=== PATIENT | female | born 1950 | race Caucasian/White ===

== ENCOUNTER → 2016-07-26 | Outpatient (CLI) | payer MEDICARE, BC ==
[~2016-07-26] MED LIST: ASPIRIN LO-DOSE81 MG PO; BUMEX1 MG PO; COQ10-VIT E 201 EACH PO; COUMADIN 4MG **4 MG PO; COZAAR50 MG PO; CRESTOR40 MG PO; DELTASONE10 MG PO; FISH OIL 1,0001 EACH PO; GLUCAGON EMERGEN1 MG SUB-Q; IMDUR60 MG PO; LANTUS SOL100 UNIT/1 SUB-Q; LEVOTHROID (S125 MCG PO; LIPITOR80 MG PO; MULTI-VITAMIN1 EAC1 PO; NEURONTIN300 MG PO; NORVASC5 MG PO; NOVOLOG FL100 UNIT/1 SUB-Q; PLAVIX75 MG PO; TOPROL XL25 MG PO; TYLENOL EXTRA500 MG PO
== END | disposition disaster alternative care site (69) ==
LOC: GRAD 08:15
DX: R22.41 Localized swelling, mass and lump, right lower limb (principal)
CPT/HCPCS: A9577

== ENCOUNTER 2016-08-23 19:59 | Inpatient (IN) | payer MEDICARE, BC ==
[~2016-08-23] VITALS: Ht 157.5 cm; Wt 101.3 kg
--- NOTE | ~2016-08-23 | CATH ---
Cardiac Diagnostic + PCI Report Demographics Patient Name TITI Zelaya Gender Female Date of 1950 Age 65 year(s) Patient Number [id number] Date of Study 08/26/2016 Visit Number [id number] Room Number G6302 [place] [id number] Ht 157.48 cm Wt 100.25 kg Referring Efstratiou Primary Physician Physician Toño Mcghee MD Performing Efstratiou Secondary Physician Physician Toño Mcghee MD Diagnostic Efstratiou Assisting Physician Physician Toño Mcghee MD Interventional Efstratiou Physician Slicer Machine Operator Physician Toño Mcghee MD Findings and Conclusions Diagnostic Findings and Conclusion Patent grafts to LAD and RPDA. Severe diffuse disease of [place] vessels. Culprit appears to be proximal circumflex(80%) and OM (90% and 95%). Diagnostic Recommendations PCI to Circumflex and OM Interventional Findings and Conclusion OM was wired successfully but even the 1.2 mm balloon would not cross the 95% stenosis. Successful AMANDA to Proximal Circumflex extending into the proximal OM. Interventional Recommendations Aspirin, Plavix, and Coumadin for 1 month. Plavix and Coumadin for 11 months. Procedure Description The patient was brought to the diagnostic cardiac catheterization-EP laboratory in the fasting, non-sedated state. Informed consent was obtained in the written and verbal form after the risks and benefits were explained. The patient had no further questions and agreed to proceed. The planned puncture-incision site(s) were shaved and prepped with ChloraPrep and draped in the usual sterile manner. Conscious sedation, supplemental oxygen, and pain control medications were delivered by a registered nurse under physician guidance. Surface ECG rhythm, blood pressure measurement, and pulse oximetry were monitored throughout the procedure. Arterial access. The access site was infiltrated with lidocaine. The vessel was entered with the Seldinger technique. A sheath was advanced into the vessel and used for catheter placement. Selective left coronary angiography. A catheter was advanced into the left coronary vessel ostium under Fluoroscopic guidance. Contrast was injected by hand. Images were obtained in multiple projections. Selective right coronary angiography. A catheter was advanced into the right coronary vessel ostium under fluoroscopic guidance. Contrast was injected by hand. Images were obtained in multiple projections. Angioplasty and Stent Placement: A guiding catheter was used to intubate the vessel. A 0.14 wire was then used to cross the lesion. A balloon catheter was placed across the lesion and inflated. The balloon catheter was then removed. A Drug Eluting Stent was placed and inflated. Post placement angiograms were performed. Arterial artery hemostasis was achieved. The patient was transferred to a regular nursing floor via cart accompanied by a nurse. The patient left the laboratory in stable condition. Diagnostic Cath Status: Urgent Interventional Cath Status: Urgent Procedure Procedure Type Diagnostic procedure:Angiography:, Coronary Angios PCI procedure:Drug Eluting Coronary Stent:, CFX, PTCA:, CFX, OM Indications: Chest pain. The procedure was explained in detail to the patient. Risks, complications and alternative treatments were reviewed. Written consent was obtained. Medications Reviewed with Patient prior to Procedure. Angiographic Findings Dominance: Right Cardiac Arteries and Lesion Findings LMCA: Patent LAD: Circumflex small vessel Lesion on Mid LAD: 95% stenosis . Lesion on 1st Dia% stenosis . LCx: Lesion on Prox CX: Proximal subsection.80% stenosis 24 mm length reduced to 0%. Pre procedure MIGUEL III flow was noted. Post Procedure MIGUEL III flow was present. The guidewire cross was successful.The lesion was diagnosed as a moderate risk lesion.Culprit lesion. Devices used - Emerge Balloon 2.25 x 12. 1 inflation(s) to a max pressure of: 16 zan. - NC Emerge Balloon 3.0 x 12. 2 inflation(s) to a max pressure of: 25 zan. - NC Trek Balloon 2.5 x 12. Diameter: 2.5 mm. Length: 12 mm. 3 inflation(s) to a max pressure of: 30 zan. - Prowater Wire .014 x 180. Number of passes: 2. - Emerge Balloon 2.5 x 12. 2 inflation(s) to a max pressure of: 16 zan. - Promus Premier 2.5 x 12 Stent. 1 inflation(s) to a max pressure of: 16 zan. - Promus Premier 2.75 x 12 Stent. 1 inflation(s) to a max pressure of: 27 zan. Lesion on 1st Ob Rosibel: Proximal subsection.85% stenosis . Pre procedure MIGUEL III flow was noted. Post Procedure MIGUEL III flow was present. The guidewire cross was successful.The lesion was diagnosed as a moderate risk lesion. Devices used - Whisper Wire .014 x 190. Number of passes: 1. - Emerge Balloon 1.5 x 12. 2 inflation(s) to a max pressure of: 14 zan. - DOC Wire. Number of passes: 1. - Emerge OTW Push Balloon 1.2 x 8. 2 inflation(s) to a max pressure of: 18 zan. Lesion on 1st Ob Rosibel: Distal subsection.95% stenosis . RCA: Lesion on Mid RCA: 75% stenosis . Lesion on Dist RCA: 100% stenosis . Lesion on 1st RPL: 95% stenosis . Cardiac Grafts - There is a graft that originates at the WESTON and attaches to the Mid LAD (Patent). - There is a Vein graft that originates at the Aorta Right and attaches to the R PDA (Patent). - There is a Vein graft that originates at the Aorta Right and attaches to the 1st Ob Rosibel (Chronically occluded). Coronary Tree Procedure Data Procedure Date Date: 08/26/2016Start: 09:12 AMEnd: 11:08 AM Entry Locations - Retrograde Percutaneous access was performed through the Right Femoral artery (Primary location). A 6 Fr sheath was inserted. Hemostasis was successfully obtained using Angio-Seal STS PLUS ([place]). Closure Comments: Deployed by Dr. Lanza.. Procedure Medications Order and Administration + + + + + !Time !Medication !Dosage !Route ! + + + + + !08/26/2016 09:09 AM !Versed !1 mg !I.V. ! + + + + + !08/26/2016 09:14 AM !0.9% NaCl !200 ml !I.V. bolus ! + + + + + !08/26/2016 09:16 AM !Fentanyl !50 mcg !I.V. ! + + + + + !08/26/2016 09:20 AM !0.9% NaCl !200 !I.V. bolus ! + + + + + !08/26/2016 09:20 AM !Heparin (ACC_3) !8000 units !I.V. bolus ! + + + + + !08/26/2016 09:21 AM !Oxygen !2 l/min !NC ! + + + + + !08/26/2016 09:33 AM !Heparin (ACC_3) !3000 units !I.V. bolus ! + + + + + 08/26/2016 09:54 AM !Fentanyl !50 mcg !I.V. ! + + + + + 08/26/2016 09:54 AM !Fentanyl !50 mcg !I.V. ! + + + + 08/26/2016 10:03 AM !Integrilin (ACC_7) !20 mg !I.C. ! + + + + + 08/26/2016 10:51 AM !Plavix (ACC_8) !600 mg !P.O. ! + + + + + Devices Used - A6 Fr. BS JL 4 Diag. Catheterwas used for:Left coronary angiography. - A6 Fr. BS JR 4 Diag. Catheterwas used for:Right coronary angiography. - A6 Fr. BS JR 4 Diag. Catheterwas used for:SVG. - A6 Fr. BS JR 4 Diag. Catheterwas used for:WESTON. - A6 Fr. XB 3.5 Guide Catheterwas used for:OM Intervention. - A6 Fr. Guidlinerwas used for:Circumflex Intervention. Contrast Material - Isovue 406220 ml Fluoroscopy Time: Diagnostic: 34:42 minutes. Total: 34:42 minutes. Fluoroscopy Dose: Diagnostic: 3047 mGy. Total: 3047 mGy. Estimated Blood Loss: 50 ml. Additional [facility] PCI Information PCI Indication:PCI for high risk Non-STEMI or unstable angina. Medical History Allergies - Antibiotics:(augmentin, amox m ceph). - Other:(epi). - Cephalosporines. Risk Factors The patient risk factors include: prior CABG on 04/13/2008;obesity, cerebrovascular disease, treated hypercholesterolemia, treated hypertension, family history of premature CAD, insulin-treated diabetes mellitus, last creatinine: 0.8 mg/dl, creatinine clearance: 110.95 ml/min, dyslipidemia, renal failure and prior heart failure . Admission Data Admission Date: 08/23/2016 Admission Time: 10:40 PM Insurance Payors: Medicare. Admission Medications + +------+------+ + + + + !Medication !Dosage!Times !Last !Last !Administered !Comments ! ! ! !Per !Delivery !Delivery ! ! ! ! ! !Day !Date !Time ! ! ! + +------+------+ + + + + !VADIM ! ! ! ! !Yes ! ! !Inhibitor ! ! ! ! ! ! ! !(any) ! ! ! ! ! ! ! + +------+------+ + + + + !Aspirin ! ! ! ! !Yes ! ! !(any) ! ! ! ! ! ! ! + +------+------+ + + + + !Statin (any)! ! ! ! !Yes ! ! + +------+------+ + + + + !ARB (any) ! ! ! ! !Yes ! ! + +------+------+ + + + + !Beta Johnie! ! ! ! !Yes ! ! !(any) ! ! ! ! ! ! ! + +------+------+ + + + + !Warfarin ! ! ! ! ! ! ! + +------+------+ + + + + Clinical Evaluation Leading to Procedure - The patient's CAD presentation was assessed as: Unstable angina. - The patient's anginal syndrome during the past two weeks was assessed as: Class IV according to the [place] Cardiovascular Society Classification System (CCS). Anti-anginal medications were prescribed during the past two weeks. The medications are: Beta Blockers, Ca channel Blockers and Long Acting Nitrates. Snapshots Hemodynamics Condition: Rest O2 Consumption: Estimated: 176.22Heart Rate: 57 bpm Pressures (mmHg) +-----+ + !Site !Pressure ! +-----+ + !AO !158/58 (94) ! +-----+ + !AO !147/50 (85) ! +-----+ + Shunts Oxygen Values O2 Capacity 171.36 O2 Consumption 176.22 Signatures dtt: Paola Lanza dtd: 08/26/16 0912 Physician Self Edit
--- NOTE | ~2016-08-23 | DS ---
PATIENT'S NAME: TAE WALLS [facility] AGE: 65 Y [address] ROOM: [address] [address] LOCATION: GPCU ADMIT DATE: 08/23/2016 Discharge Summary DISCHARGE DATE: 08/27/2016 FAMILY PHYSICIAN: Terry Demarco MD ATTENDING PHYSICIAN: Terry Demarco DISCHARGE DIAGNOSES: 1. Acute coronary syndrome with coronary artery disease with angina. 2. Drug-eluting stent to the circ and PTCA to the circ and obtuse marginal. 3. Chronic diastolic congestive heart failure. 4. Adult-onset diabetes mellitus, insulin dependent. 5. Hypertension. 6. Hyperlipidemia. 7. Polymyalgia rheumatica. 8. Diabetic neuropathy. DISCHARGE INSTRUCTION: Normal postcatheterization teaching restrictions were given, and they will get the patient going with outpatient cardiac rehab. FOLLOWUP: Follow up is with Dr. Demarco at his normal scheduled appointment and Dr. Lanza in 2 weeks. DISCHARGE INSTRUCTIONS: She is to follow a cardiac prudent diabetic diet. She has a 10-pound lifting restriction for 1 week. DISCHARGE MEDICATIONS: Include: 1. Amlodipine 5 mg daily. 2. Aspirin 81 mg daily. 3. Bumex 1 mg 3 days of the week, Saturday, , and Saturdays. 4. [place]-3 fatty acids or fish oil 1 capsule 1000 mg daily. 5. Gabapentin 300 mg b.i.d. 6. Glucagon p.r.n. hypoglycemia. 7. Isosorbide mononitrate 60 mg daily. 8. Insulin 52 units subcutaneously at h.s. 9. Levothyroxine 125 mcg daily. 10. Losartan 100 mg daily. 11. NovoLog prior to meals per her normal scale which is 5 units per carb exchange. 12. Prednisone 10 mg twice daily with meals. 13. Metoprolol tartrate 37.5 mg twice daily. 14. Warfarin 6 mg 2 days a week, on Tuesdays and Saturdays, and 8 mg the rest of the week. 15. Tylenol 500 mg every 6 hours. 16. Folic acid 1 tab daily. 17. Co Q10 and vitamin E combination 1 tab daily. PATIENT'S NAME: TAE WALLS [facility] AGE: 65 Y [address] ROOM: G6302 [place], [place] [address] LOCATION: GPCU ADMIT DATE: 08/23/2016 Discharge Summary DISCHARGE DATE: 08/27/2016 FAMILY PHYSICIAN: Terry Demarco MD ATTENDING PHYSICIAN: Terry Demarco 18. Plavix 75 mg daily. 19. Rosuvastatin 40 mg daily. HISTORY OF PRESENT ILLNESS: The patient was admitted by my partner, Dr. Rosaline Mooney with acute coronary syndrome orders. Orders were filled out and [facility] Cardiology was consulted. The patient had chest pain, which resolved upon admission to the emergency room. With her history of previous bypass surgery and signs of ST-elevation in II, III, and AVF, it was thought best to go ahead and admit her. She was recently diagnosed with polymyalgia rheumatica. The patient's hospital course was fairly uncomplicated. She was admitted for acute coronary syndrome orders. We did Accu-Cheks a.c. and h.s., and we switched her over to her home NovoLog sliding scale as she does better. Her last A1c had just been a month prior and was 6.5, so she was showing good control. We did resume her prednisone at 10 mg b.i.d. due to her recent diagnosis of polymyalgia rheumatica. The patient overall did well. Cardiology was consulted. They held her Coumadin. We did give her some Flexeril for leg cramps. Her situation overall stabilized. Once her protime had reversed adequately, she was taken to the microbiological laboratory technician. Her blood pressures were running high, so we increased her losartan to 100 mg p.o. daily. Her cardiac cath was successful. She had a stent of the circ and angioplasty of her obtuse marginal. The patient did well post catheterization, and on August 27, 2016, was ready for dismissal. We went ahead and resumed her warfarin. She has an appointment for me in a few days, and we will just follow her up at that time and recheck and see how she is doing. CONDITION ON DISCHARGE: Good. MD MARIBEL CONNELL/briseyda /[id number] d: 09/19/16 2115 t: 09/26/16 1753, DISCHARGE SUMMARY
--- NOTE | ~2016-08-23 | ECHO ---
Transthoracic Echocardiography Report (TTE) Demographics Patient Name TAE WALLS Date of Study 08/24/2016 Patient Number [id number] Visit Number [id number] Date of 1950 Room Number G6302 Accession Number [id number] Gender Female Age 65 year(s) Referring Jesica Hartman MD Consumer Electronics Merchandiser Faith Pickering [facility] Physician Physician Interpreting Myla Lundberg Evaluator Physician Taz CARRILLO Supervising Ordering Physician Jesica Hartman MD, MD/P Nurse Stress Anhydrous Ammonia Production Supervisor Conclusions Summary Technically difficult exam. The estimated left ventricular ejection fraction is 50%. Diastolic function indeterminate due to patient's arrhythmia. The left ventricle is mildly dilated . Mildly reduced right ventricular function. Borderline prolapse of the anterior mitral valve leaflet with trivial mitral regurgitation Mild tricuspid regurgitation by color Doppler. Procedure Type of Study TTE procedure:2D Echocardiogram, Echo with Contrast. Procedure Date Date: 08/24/2016 Start: 09:04 AM Study Location: Inpatient Portable Technical Quality: Limited visualization due to body habitus. Appropriate Use Criteria: 9 Patient Status: Routine HR: 45 bpm BP: 169/72 mmHg Allergies - Antibiotics:(augmentin, amox m ceph). - Other:(epi). M-Mode/2D Measurements LV Diastolic Dimension: 4.75 cm LV Systolic Dimension: 3.49 cm LV Septum Diastolic: 1.06 cm LV PW Diastolic: 1.07 cm AO Root Dimension: 2.4 cm Cardiac Output: 3.19 l/min AV Cusp Separation: 1.8 cm RV Diastolic Dimension: 3.11 cm LA volume: 22 ml LVOT: 2 cm LVOT VTI: 22.6 cm TAPSE: 1.26 cm LV Stroke volume: 70.96 ml Doppler Measurements AV Peak Velocity: 1.37 m/s MV Peak E-Wave: 0.82 m/s AV Peak Gradient: 7.51 mmHg MV Peak A-Wave: 0.74 m/s AV Mean Gradient: 4 mmHg MV E/A Ratio: 1.11 LVOT Peak Velocity: 1.03 m/s MV P1/2t: 59 msec TR Gradient:12.11 mmHg PV Peak Velocity: 0.93 m/s Estimated RAP:10 mmHg PV Peak Gradient: 3.49 mmHg Estimated RVSP: 22 mmHg Estimated PASP: 22.11 mmHg E' Septal Velocity: 0.09 m/s A' Septal Velocity: 0.11 m/s Findings Left Ventricle Diastolic function indeterminate due to patient's arrhythmia. The left ventricle is mildly dilated . Right Ventricle Mildly reduced right ventricular function. Left Atrium Normal left atrial size. Right Atrium Normal right atrial size. Mitral Valve Borderline prolapse of the anterior mitral valve leaflet with trivial mitral regurgitation Aortic Valve Normal aortic valve structure and function. Tricuspid Valve Mild tricuspid regurgitation by color Doppler. Pulmonic Valve Normal pulmonic valve structure and function. Pericardial Effusion No evidence of pericardial effusion. Pleural Effusion No evidence of pleural effusion. Signature dtt: Paola Lanza dtd: 08/24/16 0904 Physician Self Edit
--- NOTE | ~2016-08-23 | CON ---
PATIENT'S NAME: TAE WALLS [facility] AGE: 65 Y [address] ROOM: [place] [address] LOCATION: GPCU ADMIT DATE: 08/23/2016 Consultation DISCHARGE DATE: FAMILY PHYSICIAN: Terry Demarco MD ATTENDING PHYSICIAN: Terry Demarco DATE OF CONSULTATION: 08/24/2016 REFERRING PHYSICIAN: Paola Lanza MD REASON FOR CARDIOLOGY CONSULT: Chest pain. HISTORY OF PRESENT ILLNESS: This is a 65-year-old female, familiar to [facility]. She was last seen by Dr. Lanza on 07/12/2016. She has a previous history of coronary artery bypass grafting as well as paroxysmal atrial fibrillation with long-term anticoagulation with Coumadin. She called her primary care provider, who was on-call the night prior to admission with complaints of chest pressure and shortness of breath that lasted about 10 minutes. The symptoms resolved on their own, but the primary care provider wanted her to be evaluated in the emergency department. Once again, this consult was requested due to the complaints of chest pain and pressure, which she describes as epigastric in nature and radiating up into her jaw. She denies any nausea or vomiting as well as palpitations or presyncope. PAST MEDICAL HISTORY: 1. Coronary artery disease. 2. Paroxysmal atrial fibrillation. 3. Long-term anticoagulation with Coumadin. 4. Chronic diastolic congestive heart failure. 5. Diabetes mellitus type 2. 6. Hypothyroidism. 7. Ulcerative colitis. 8. Arthritis. PAST SURGICAL HISTORY: Coronary artery bypass grafting in 2007. FAMILY HISTORY: The patient's mother due to a myocardial infarction. She also has a sister with a history of breast cancer. SOCIAL HISTORY: The patient denies ever using tobacco. She does admit to social use of alcohol, but denies illicit drug use. PATIENT'S NAME: TAE WALLS [facility] AGE: 65 Y [address] ROOM: [place] [address] LOCATION: GPCU ADMIT DATE: 08/23/2016 Consultation DISCHARGE DATE: FAMILY PHYSICIAN: Terry Demarco MD ATTENDING PHYSICIAN: Terry Demarco CURRENT MEDICATIONS: 1. Multivitamin 1 tablet p.o. daily. 2. Cozaar 50 mg p.o. daily. 3. Deltasone 10 mg p.o. twice daily. 4. Imdur 60 mg p.o. daily in the evening. 5. Synthroid 125 mcg p.o. daily. 6. Lipitor 80 mg p.o. daily in the evening. 7. Neurontin 300 mg p.o. twice daily. 8. Toprol-XL 25 mg p.o. twice daily. 9. Levemir 52 units subcu daily in the evening. 10. NovoLog 1 unit subcu for every 10 g of carbs with meals and in the evening. 11. NovoLog 5 units per every 15 g of carbs with meals. MEDICATION ALLERGIES: Cephalosporins causing rash. REVIEW OF SYSTEMS: Pertinent positive review of systems was listed in HPI. All other review of systems was evaluated and negative. DIAGNOSTICS: CMS evaluation shows sodium of 140, potassium 3.8, BUN of 27, creatinine 1.0, glucose of 131, and a magnesium of 2.1. Lipid evaluation shows total cholesterol of 188, triglycerides of 97, HDL of 96, and LDL of 73. Cardiac enzyme trend shows CPK of 145, then 135, then 126. CK-MB of 2.5, then 2.6, and 2.5. Troponin I of less than 0.04 x3 values. Echocardiogram shows an estimated left ventricular ejection fraction of 50%. She has a mildly dilated left ventricle and a mildly reduced right ventricular function. There is also borderline prolapse of the anterior mitral valve leaflet and trivial mitral regurgitation as well as mild tricuspid regurgitation. PHYSICAL EXAMINATION: VITAL SIGNS: Temperature 97.9, pulse 61, respirations 16, blood pressure 132/60, O2 saturation 95% on room air. The patient weighs 100.4 kg. SKIN: [place], warm, and dry. EYES: Sclerae are clear. No xanthelasmas. ENT: Oral mucosa is pink and moist. No carotid bruits noted. She does have mild jugular venous distention. CHEST: Respirations are even and unlabored. LUNGS: Clear to auscultation to bilateral upper lobes. They are diminished to bilateral lower lobes. PATIENT'S NAME: TAE WALLS [facility] AGE: 65 Y [address] ROOM: [address] [address] [facility] ADMIT DATE: 08/23/2016 Consultation DISCHARGE DATE: FAMILY PHYSICIAN: Terry Demarco MD ATTENDING PHYSICIAN: Terry Demarco HEART: Regular rate and rhythm. Normal S1, S2. No murmurs, rubs, or gallops. ABDOMEN: Soft, nontender. MUSCULOSKELETAL: Gait is normal. EXTREMITIES: Peripheral pulses are palpable. No clubbing or cyanosis noted. She does have 2 to 3+ lower extremity edema present. PSYCH: Alert and oriented. Mood and affect are appropriate. IMPRESSION AND PLAN: Per Dr. Lanza: 1. Chest pressure, resembling classic angina with radiation to her jaw. 2. History of polymyalgia rheumatica. 3. Hypertension. 4. Hyperlipidemia. 5. Chronic diastolic congestive heart failure. Cardiac enzymes and EKG are currently stable for any acute changes of ischemia, but with her classic signs of angina, we will plan to proceed with a selective coronary angiography and possible percutaneous intervention. Her INR is elevated due to her chronic Coumadin use. So, we will hold that and trend her INR down until it is safe to proceed with heart catheterization. We will continue to monitor, evaluate, and treat as appropriate. Thank you for this consult. Thank you for allowing [facility] to interact in the care of this patient. EVARISTO HERNANDEZ APRN FOR MD EL HILLIARD/briseyda /[id number] d: 08/25/1624 t: 08/29/16 1011, CONSULTATION REPORT
--- NOTE | ~2016-08-23 | ER ---
PATIENT'S NAME: TAE WALLS [facility] AGE: 65 Y [address] ROOM: [place] [address] LOCATION: GPCU ADMIT DATE: 08/23/2016 ER/Outpatient Report DISCHARGE DATE: FAMILY PHYSICIAN: Terry Demarco MD ATTENDING PHYSICIAN: Terry Demarco Time of Arrival: 1959 hours. Time of Evaluation: On arrival. CHIEF COMPLAINT: This is a 65-year-old female, previously reasonably healthy. She is in with complaint of substernal chest pain. HISTORY OF PRESENT ILLNESS: She reports she had about a 20-minute episode of midline substernal chest pain, described as a pressure or tightness. It radiated in to her neck and jaw, associated with mild shortness of breath. No nausea or vomiting, and no diaphoresis. PAST MEDICAL HISTORY: Significant for atrial fibrillation, gout, coronary artery disease with previous three-vessel bypass. REVIEW OF SYSTEMS: She states she has felt very fatigued for the past 4 or 5 days. All other systems are negative. SOCIAL HISTORY: She is a nonsmoker. PHYSICAL EXAMINATION: GENERAL: Alert, cooperative female, in no acute distress. VITAL SIGNS: Stable. SKIN: Warm and dry. Color is pale. She is asymptomatic at the time of my evaluation. HEAD, EARS, EYES, NOSE, AND THROAT: Normal. NECK: Supple. HEART: Regular rate and rhythm without murmur. LUNGS: Clear. Breath sounds are equal. ABDOMEN: Soft and nontender. EXTREMITIES: Normal. NEUROLOGIC: Normal. LABORATORY DATA AND X-RAYS: EKG revealed a [address] elevation in leads II, III, and aVF with ST PATIENT'S NAME: TAE WALLS [facility] AGE: 65 Y [address] ROOM: [place] [address] LOCATION: GPCU ADMIT DATE: 08/23/2016 ER/Outpatient Report DISCHARGE DATE: FAMILY PHYSICIAN: Terry Demarco MD ATTENDING PHYSICIAN: Terry Demarco depression in aVL. This is new as compared to the EKG performed in December of last year. EMERGENCY DEPARTMENT COURSE: The patient remained pain-free in the emergency department. I discussed the case with tax compliance manager. EKGs were e-mailed to the tax compliance manager. She reviewed those. Since the patient was not having pain while in the emergency department and her initial cardiac enzymes are negative, she was admitted on IV heparin. ASSESSMENT: 1. Chest pain/unstable angina. 2. Abnormal EKG. 3. History of atrial fibrillation. PLAN: Admit with ACS protocol with IV heparin. MD BRITTNI MAJOR/modl /[id number] d: 08/24/16 0424 t: 08/26/16 0600, OUTPATIENT REPORT
[2016-08-23 21:21] LABS: BASOPHIL % 0.2 %; EOSINOPHIL # 0.1 K/uL (0.0-0.5); EOSINOPHIL % 0.6 %; HEMATOCRIT 41.4 % (33.0-46.0); HEMOGLOBIN 13.5 g/dL (10.0-15.0); IMMATURE GRANULOCYTE % 0.3 %; LYMPHOCYTE # 1.7 K/uL (0.8-4.0); LYMPHOCYTE % 15.4 %; MCH 28.5 pg (27.0-34.0); MCHC 32.6 gm/dL (32.0-36.5); MCV 87.5 fl (83.0-98.0); MONOCYTE # 0.7 K/uL (0.0-1.0); MONOCYTE % 6.8 %; MPV 10.9 fl (9.4-12.4); NEUTROPHIL # (ANC) 8.2 K/uL (1.8-7.8); NEUTROPHIL % 76.7 %; NRBC % 0 /100WBC (0-0.00); PLATELET COUNT 252 K/uL (150-450); RBC 4.73 M/uL (3.50-5.50); RDW-CV 15.9 % (11.9-14.6); WBC 10.7 K/uL (4.0-11.0)
[2016-08-23 21:32] LABS: ALBUMIN 3.5 gm/dL (3.5-5.0); ALK PHOS 172 IU/L (33-138); ALT 44 IU/L (12-78); BLOOD UREA NITROGEN 27 mg/dL (6-24); CALCIUM 8.9 mg/dL (8.5-10.5); CHLORIDE 103 mMol/L (96-110); CO2 27 mMol/L (22-32); CPK 145 IU/L (21-215); ESTIMATED GFR (MDRD EQUATION) 56; SODIUM 140 mMol/L (135-145); TOTAL BILIRUBIN 0.4 mg/dL (0.0-1.5); TOTAL PROTEIN 7.6 g/dL (6.0-8.4)
[2016-08-23 21:33] LABS: ANION GAP 13.8 (10.0-19.0); AST 28 IU/L (10-40); MAGNESIUM 2.1 mg/dL (1.8-2.6); POTASSIUM 3.8 mMol/L (3.7-5.1)
[2016-08-23 22:09] LABS: INR - (THERAPEUTIC) 3.18 (0.89-1.05); PROTIME 33.8 SECONDS (9.1-10.7); PTT 34 SECONDS (23-30)
[2016-08-23 23:27] LABS: CPK 135 IU/L (21-215)
[2016-08-24] MEDS ORDERED: NORVASC5 MG PO
[2016-08-24] MEDS ORDERED: ASPIRIN LO-DOSE81 MG PO (00:02)
[2016-08-24] MEDS ORDERED: BUMEX1 MG PO (00:02)
[2016-08-24] MEDS ORDERED: CRESTOR40 MG PO (00:03)
[2016-08-24] MEDS ORDERED: NEURONTIN300 MG PO (00:04)
[2016-08-24] MEDS ORDERED: FISH OIL 1,0001 EACH PO (00:04)
[2016-08-24] MEDS ORDERED: GLUCAGON EMERGEN1 MG SUB-Q (00:07)
[2016-08-24] MEDS ORDERED: IMDUR60 MG PO (00:08)
[2016-08-24] MEDS ORDERED: LANTUS SOL100 UNIT/1 SUB-Q (00:09)
[2016-08-24] MEDS ORDERED: LEVOTHROID (S125 MCG PO (00:09)
[2016-08-24] MEDS ORDERED: LIPITOR80 MG PO (00:10)
[2016-08-24] MEDS ORDERED: COZAAR50 MG PO (00:10)
[2016-08-24] MEDS ORDERED: NOVOLOG FL100 UNIT/1 SUB-Q (00:11)
[2016-08-24] MEDS ORDERED: DELTASONE10 MG PO (00:12)
[2016-08-24] MEDS ORDERED: COUMADIN 4MG **4 MG PO ×2 (00:13→00:14)
[2016-08-24] MEDS ORDERED: TOPROL XL25 MG PO (00:13)
[2016-08-24] MEDS ORDERED: TYLENOL EXTRA500 MG PO (00:28)
[2016-08-24] MEDS ORDERED: MULTI-VITAMIN1 EAC1 PO (00:29)
[2016-08-24] MEDS ORDERED: COQ10-VIT E 201 EACH PO (00:30)
[2016-08-24 02:10] LABS: BILIRUBIN URINE NEGATIVE (NEGATIVE); BLOOD URINE NEGATIVE /UL (NEGATIVE); COLOR URINE YELLOW (YELLOW); GLUCOSE URINE NEGATIVE (NEGATIVE); KETONE URINE NEGATIVE (NEGATIVE); LEUKOCYTES URINE 25 /UL (NEGATIVE); NITRITE URINE NEGATIVE (NEGATIVE); PROTEIN URINE NEGATIVE (NEGATIVE); TURBIDITY URINE CLEAR (CLEAR); UROBILINOGEN URINE NORMAL (NORMAL)
[2016-08-24 02:19] LABS: BACTERIA URINE RARE (NEGATIVE); EPITHELIAL URINE 0-2 #/HPF (NEGATIVE); RBC URINE NEGATIVE #/HPF (NEGATIVE)
[2016-08-24 04:33] LABS: CPK 126 IU/L (21-215)
[2016-08-24 11:20] LABS: CPK 92 IU/L (21-215)
[2016-08-24 17:41] LABS: CPK 195 IU/L (21-215)
[2016-08-25 07:21] LABS: INR - (THERAPEUTIC) 3.81 (0.92-1.07); PROTIME 40.5 SECONDS (9.8-11.4)
[2016-08-25 13:52] LABS: BASOPHIL % 0.3 %; EOSINOPHIL # 0.1 K/uL (0.0-0.5); EOSINOPHIL % 0.3 %; HEMATOCRIT 38.1 % (33.0-46.0); HEMOGLOBIN 12.6 g/dL (10.0-15.0); IMMATURE GRANULOCYTE # 0.1 K/uL (0.0-0.3); IMMATURE GRANULOCYTE % 0.4 %; LYMPHOCYTE # 0.6 K/uL (0.8-4.0); LYMPHOCYTE % 4.1 %; MCHC 33.1 gm/dL (32.0-36.5); MCV 87.6 fl (83.0-98.0); MONOCYTE # 0.5 K/uL (0.0-1.0); MONOCYTE % 3.5 %; MPV 11.1 fl (9.4-12.4); NEUTROPHIL # (ANC) 13.4 K/uL (1.8-7.8); NEUTROPHIL % 91.4 %; NRBC % 0 /100WBC (0-0.00); RBC 4.35 M/uL (3.50-5.50); RDW-CV 15.9 % (11.9-14.6); WBC 14.7 K/uL (4.0-11.0)
[2016-08-25 14:22] LABS: PLATELET COUNT 171 K/uL (150-450)
[2016-08-25 15:22] LABS: ALBUMIN 3.3 gm/dL (3.5-5.0); ALK PHOS 139 IU/L (33-138); ALT 47 IU/L (12-78); ANION GAP 12.4 (10.0-19.0); AST 25 IU/L (10-40); BLOOD UREA NITROGEN 27 mg/dL (6-24); CALCIUM 8.8 mg/dL (8.5-10.5); CHLORIDE 104 mMol/L (96-110); CO2 28 mMol/L (22-32); CREATININE 0.8 mg/dL (0.5-1.1); ESTIMATED GFR (MDRD EQUATION) > 60; POTASSIUM 4.4 mMol/L (3.7-5.1); SODIUM 140 mMol/L (135-145); TOTAL BILIRUBIN 0.4 mg/dL (0.0-1.5); TOTAL PROTEIN 7.1 g/dL (6.0-8.4)
[2016-08-26 07:13] LABS: INR - (THERAPEUTIC) 1.4 (0.92-1.07); PROTIME 14.8 SECONDS (9.8-11.4)
[2016-08-26 15:43] LABS: CPK 71 IU/L (21-215)
[2016-08-27 01:24] LABS: CPK < 10 IU/L (21-215)
[2016-08-27 07:16] LABS: ALBUMIN 2.8 gm/dL (3.5-5.0); ALK PHOS 121 IU/L (33-138); ALT 36 IU/L (12-78); ANION GAP 14.8 (10.0-19.0); AST 19 IU/L (10-40); BLOOD UREA NITROGEN 25 mg/dL (6-24); CALCIUM 8.3 mg/dL (8.5-10.5); CHLORIDE 110 mMol/L (96-110); CO2 23 mMol/L (22-32); CREATININE 0.6 mg/dL (0.5-1.1); ESTIMATED GFR (MDRD EQUATION) > 60; POTASSIUM 4.8 mMol/L (3.7-5.1); SODIUM 143 mMol/L (135-145); TOTAL BILIRUBIN 0.4 mg/dL (0.0-1.5); TOTAL PROTEIN 6.1 g/dL (6.0-8.4)
[2016-08-27] MEDS ORDERED: PLAVIX75 MG PO (09:36)
[2016-08-27] MEDS ORDERED: CRESTOR40 MG PO (09:41)
== END 2016-08-27 10:55 | disposition disaster alternative care site (69) | DRG 247 ==
LOC: GMED 19:59 → GPCU 22:39
PROVIDERS: Emergency Medicine; Internal Medicine Cardiovascular Disease; Nurse Practitioner; ADMIT Family Medicine
PROC: 30233K1 Transfusion of Nonautologous Frozen Plasma into Peripheral Vein, Percutaneous Approach (ICD-10-PCS; 2016-08-25)
PROC: 027035Z Dilation of Coronary Artery, One Artery with Two Drug-eluting Intraluminal Devices, Percutaneous Approach (ICD-10-PCS; principal; 2016-08-26)
PROC: B211YZZ Fluoroscopy of Multiple Coronary Arteries using Other Contrast (ICD-10-PCS; principal; 2016-08-26)
PROC: 027034Z Dilation of Coronary Artery, One Artery with Drug-eluting Intraluminal Device, Percutaneous Approach (ICD-10-PCS; principal; 2016-08-26)
PROC: 02703ZZ Dilation of Coronary Artery, One Artery, Percutaneous Approach (ICD-10-PCS; principal; 2016-08-26)
DX: I25.110 Atherosclerotic heart disease of native coronary artery with unstable angina pectoris (principal); I11.0 Hypertensive heart disease with heart failure; I50.32 Chronic diastolic (congestive) heart failure; I48.0 Paroxysmal atrial fibrillation; I25.84 Coronary atherosclerosis due to calcified coronary lesion; R79.1 Abnormal coagulation profile; E11.9 Type 2 diabetes mellitus without complications; M35.3 Polymyalgia rheumatica; E03.9 Hypothyroidism, unspecified; E78.5 Hyperlipidemia, unspecified; Z79.82 Long term (current) use of aspirin; Z95.1 Presence of aortocoronary bypass graft; Z79.4 Long term (current) use of insulin
CPT/HCPCS: C1725; C1760; C1769; C1874; C1887; C9600; J1327; J1644; J2250; J3010; J7030; J7050; J7512; P9017; Q9957

== ENCOUNTER → 2016-12-07 | Outpatient (CLI) | payer MEDICARE, BC ==
[2016-12-07 12:31] LABS: BASOPHIL % 0.4 %; EOSINOPHIL # 0.1 K/uL (0.0-0.5); HEMATOCRIT 35.6 % (33.0-46.0); HEMOGLOBIN 11.6 g/dL (10.0-15.0); IMMATURE GRANULOCYTE % 0.4 %; LYMPHOCYTE # 0.6 K/uL (0.8-4.0); LYMPHOCYTE % 6.3 %; MCH 29.7 pg (27.0-34.0); MCHC 32.6 gm/dL (32.0-36.5); MCV 91.3 fl (83.0-98.0); MONOCYTE # 0.5 K/uL (0.0-1.0); MPV 10.2 fl (9.4-12.4); NEUTROPHIL # (ANC) 8.8 K/uL (1.8-7.8); NEUTROPHIL % 86.9 %; NRBC % 0 /100WBC (0-0.00); RDW-CV 14.8 % (11.9-14.6); WBC 10.2 K/uL (4.0-11.0)
[2016-12-07 12:33] LABS: PLATELET COUNT 251 K/uL (150-450)
[2016-12-07 12:44] LABS: ALBUMIN 3.3 gm/dL (3.5-5.0); ALK PHOS 84 IU/L (33-138); ALT 35 IU/L (12-78); AST 22 IU/L (10-40); BLOOD UREA NITROGEN 17 mg/dL (6-24); CHLORIDE 106 mMol/L (96-110); CO2 27 mMol/L (22-32); CREATININE 0.6 mg/dL (0.5-1.1); SODIUM 140 mMol/L (135-145); TOTAL PROTEIN 7.3 g/dL (6.0-8.4)
[2016-12-07 12:49] LABS: TOTAL BILIRUBIN 0.3 mg/dL (0.0-1.5)
== END ==
LOC: LNHI 12:26
PROVIDERS: Internal Medicine Cardiovascular Disease
DX: R07.9 Chest pain, unspecified (principal); I10 Essential (primary) hypertension

== ENCOUNTER → 2016-12-21 | Outpatient (CLI) | payer MEDICARE, BC ==
[2016-12-21 10:01] LABS: PROTIME 70.8 SECONDS (9.8-11.4)
[2016-12-21 10:35] LABS: INR - (THERAPEUTIC) 6.62 (0.92-1.07)
== END ==
LOC: LNHI 09:17
PROVIDERS: Nurse Practitioner Women's Health
DX: I48.3 Typical atrial flutter (principal); Z79.01 Long term (current) use of anticoagulants